=== PATIENT | male | born 1980 ===

== ENCOUNTER 2017-10-02 20:51 | Emergency (ER) | payer BC ==
--- NOTE | 2017-10-02 21:10 | ED PDOC ---
Arrival/HPI <Corey Mario - Last Filed: 10/02/17 22:50> - General Historian: Patient - History of Present Illness Time/Duration: Other (see hpi) Context: Home <Addi Hutchins - Last Filed: 10/02/17 23:29> - General Chief Complaint: Psychiatric Evaluation Time Seen by Provider: 10/02/17 21:00 - History of Present Illness Narrative History of Present Illness (Text): 10/02/17 21:10 This 37 yo male with a pmh hiv, bipolar, andxiety, presents to this ED by [facility], and BLS for PES evaluation. Patient stated he was pulled over by eeo officer due to "erratic driving". Patient stated he has not been taking his hiv medication since last summer. Patient does not a doctor. Patient feels anxious. Denies fever, sob, cp, skin rash, dizziness, or abnormal gait. (Addi Hutchins) Past Medical History - Provider Review Nursing Documentation Reviewed: Yes - Infectious Disease Hx of Infectious Diseases: None - Cardiac Hx Cardiac Disorders: No - Pulmonary Hx Respiratory Disorders: No - Neurological Hx Neurological Disorder: No - HEENT Hx HEENT Disorder: No - Renal Hx Renal Disorder: No - Endocrine/Metabolic Hx Endocrine Disorders: No - Hematological/Oncological Hx Blood Disorders: Yes - Integumentary Hx Dermatological Disorder: No - Musculoskeletal/Rheumatological Hx Musculoskeletal Disorders: No - Gastrointestinal Hx Gastrointestinal Disorders: No - Genitourinary/Gynecological Hx Genitourinary Disorders: No - Psychiatric Hx Psychophysiologic Disorder: No Hx Substance Use: Yes - Anesthesia Hx Anesthesia: No <Addi Hutchins - Last Filed: 10/02/17 23:29> Family/Social History - Physician Review Nursing Documentation Reviewed: Yes Family/Social History: Other (noncontributory) Smoking Status: Unknown If Ever Smoked Hx Alcohol Use: No Hx Substance Use: Yes <Addi Hutchins - Last Filed: 10/02/17 23:29> Allergies/Home Meds <Corey Mario - Last Filed: 10/02/17 22:50> <Addi Hutchins - Last Filed: 10/02/17 23:29> Allergies/Adverse Reactions: Allergies No Known Allergies Allergy (Verified 10/02/17 21:10) Home Medications: Home Meds Medication Instructions Recorded Confirmed Unobtainable 10/02/17 10/02/17 Review of Systems - Review of Systems Constitutional: Normal. absent: Fatigue, Weight Change, Fevers Eyes: Normal ENT: Normal Respiratory: Normal. absent: SOB, Cough Cardiovascular: Normal Gastrointestinal: Normal. absent: Abdominal Pain, Nausea, Vomiting Genitourinary Male: Normal Musculoskeletal: Normal Skin: Normal Neurological: Normal Endocrine: Normal Hemo/Lymphatic: Normal Psychiatric: Anxiety. absent: Depression, Suicidal Ideation <Addi Hutchins - Last Filed: 10/02/17 23:29> Physical Exam Temperature: Afebrile Blood Pressure: Normal Pulse: Regular Respiratory Rate: Normal Appearance: Positive for: Well-Appearing, Non-Toxic, Comfortable Pain Distress: None Mental Status: Positive for: Alert and Oriented X 3 - Systems Exam Head: Present: Atraumatic, Normocephalic Pupils: Present: PERRL Extroacular Muscles: Present: EOMI Conjunctiva: Present: Normal Mouth: Present: Moist Mucous Membranes Neck: Present: Normal Range of Motion Respiratory/Chest: Present: Clear to Auscultation, Good Air Exchange. No: Respiratory Distress, Accessory Muscle Use Cardiovascular: Present: Regular Rate and Rhythm, Normal S1, S2. No: Murmurs Abdomen: Present: Normal Bowel Sounds. No: Tenderness, Distention, Peritoneal Signs Back: Present: Normal Inspection Upper Extremity: Present: Normal Inspection. No: Cyanosis, Edema Lower Extremity: Present: Normal Inspection. No: Edema Neurological: Present: GCS=15, CN II-XII Intact, Speech Normal Skin: Present: Warm, Dry, Normal Color. No: Rashes Psychiatric: Present: Alert, Oriented x 3, Normal Insight, Normal Concentration <Addi Hutchins - Last Filed: 10/02/17 23:29> Vital Signs Temp Pulse Resp BP Pulse Ox 10/02/17 20:52 98.1 F 105 H 18 139/97 H 97 Medical Decision Making <Corey Mario - Last Filed: 10/02/17 22:50> Re-evaluation Time: 23:25 Reassessment Condition: Re-examined, Improved - Lab Interpretations I have reviewed the lab results: Yes Interpretation: No clinic. lab abnormalty - EKG Interpretation Interpreted by ED Physician: Yes (sinus tachycardia @[address] changes) Type: 12 lead EKG Comparison: No previous EKG avail. <Addi Hutchins - Last Filed: 10/02/17 23:29> ED Course and Treatment: 10/02/17 23:24 Lasha MINOR screener cleared patient to be discharge home, and to f/u out-pt clinic (Addi Hutchins) - Lab Interpretations Lab Results: 10/02/17 21:55 10/02/17 21:55 Lab Results 10/02/17 21:55: Alcohol, Quantitative < 10 10/02/17 21:55: Salicylates < 1 L, Acetaminophen < 10.0 L 10/02/17 21:55: Sodium 144, Potassium 4.0, Chloride 106, Carbon Dioxide 25, Anion Gap 17, BUN 8, Creatinine 0.5 L, Est GFR ( Amer) > 60, Est GFR (Non -Af Amer) > 60, Random Glucose 107, Calcium 9.1, Total Bilirubin 0.4, AST 30, ALT 28, Alkaline Phosphatase 65, Total Protein 8.3, Albumin 4.1, Globulin 4.2, Albumin/Globulin Ratio 1.0 L 10/02/17 21:55: WBC 6.1, RBC 4.72, Hgb 13.6 L, Hct 41.2 L, MCV 87.3, MCH 28.8, MCHC 33.0, RDW 15.0 H, Plt Count 256, MPV 9.8, Gran % 64.3, Lymph % (Auto) 20.7 L, Sharkey % (Auto) 11.0 H, Eos % (Auto) 3.8, Baso % (Auto) 0.2, Gran # 3.93, Lymph # (Auto) 1.3, Sharkey # (Auto) 0.7 H, Eos # (Auto) 0.2, Baso # (Auto) 0.01 - RAD Interpretation Radiology Orders: 10/02/17 21:19 CHEST PORTABLE [RAD] Stat - PA / COMMERCIAL LOAN ANALYST / Resident Statement BHUPINDER has reviewed & agrees with the documentation as recorded. BHUPINDER has examined the patient and agrees with the treatment plan. <Corey Mario - Last Filed: 10/02/17 22:50> Disposition/Present on Arrival <Corey Mario - Last Filed: 10/02/17 22:50> - Present on Arrival Any Indicators Present on Arrival: No History of DVT/PE: No History of Uncontrolled Diabetes: No Urinary Catheter: No History of Decub. Ulcer: No History Surgical Site Infection Following: None - Disposition Have Diagnosis and Disposition been Completed?: Yes Disposition Time: 23:28 Patient Plan: Discharge <Addi Hutchins - Last Filed: 10/02/17 23:29> - Disposition Diagnosis: Anxiety Disposition: HOME/ ROUTINE Condition: GOOD Discharge Instructions (ExitCare): Anxiety, Adult (DC) Additional Instructions: Call private doctor or clinic for follow up visit in 1-2 days. return to emergency if symptoms worsen. Referrals: [facility] [Outside] - Follow up with primary [facility] [Outside] - Follow up with primary [facility] [Outside] - Follow up with primary Forms: [employer] ([place])
[2017-10-02 21:40] VITALS: RESP 18; TEMP 98.1
[2017-10-02 22:25] LABS: BASO # 0.01 K/mm3 (0.0-2.0); BASO % 0.2 % (0.0-3.0); EOS # 0.2 (0.0-0.7); EOS % 3.8 % (1.5-5.0); GRAN # 3.93 (1.4-6.5); GRAN % 64.3 % (50.0-68.0); HEMOGLOBIN 13.6 g/dL (14.0-18.0); LYMPH # 1.3 (1.2-3.4); LYMPH % 20.7 % (22.0-35.0); MEAN CELL VOLUME 87.3 fl (80.0-105.0); MEAN CORPUSCULAR HEMOGLOBIN 28.8 pg (25.0-35.0); MEAN PLATELET VOLUME 9.8 fl (7.0-11.0); MONO # 0.7 (0.1-0.6); RBC 4.72 10^6/uL (3.5-6.1); WHITE BLOOD COUNT 6.1 10^3/ul (4.5-11.0)
[2017-10-02 22:34] LABS: ACETAMINOPHEN < 10.0 ug/ml (10.0-20.0); SALICYLATE < 1 mg/dL (2.0-20.0)
[2017-10-02 22:35] LABS: CALCIUM 9.1 mg/dL (8.4-10.5); GFR AFRICAN-AMERICAN > 60; GFR NON-AFRICAN AMERICAN > 60
[2017-10-02 22:48] LABS: ALBUMIN 4.1 g/dL (3.0-4.8); ALT/SGPT 28 U/L (7-56); AST/SGOT 30 U/L (17-59); BLOOD UREA NITROGEN 8 mg/dL (7-21)
[2017-10-03 00:12] VITALS: BP 128/75; PULSE 85; O2SAT 98
--- NOTE | 2017-10-03 10:07 | RAD ---
HISTORY: PES eval COMPARISON: No prior. FINDINGS: LUNGS: No active pulmonary disease. PLEURA: No significant pleural effusion identified, no pneumothorax apparent. CARDIOVASCULAR: Normal. OSSEOUS STRUCTURES: No significant abnormalities. VISUALIZED UPPER ABDOMEN: Normal. OTHER FINDINGS: None. IMPRESSION: No active disease.
--- NOTE | 2017-10-03 18:19 | CARD ---
APPROVED REPORT EKG Measurement Heart [id number] <Conclusion> Sinus tachycardia Left ventricular hypertrophy with repolarization abnormality Abnormal ECG
== END 2017-10-03 | disposition home or self-care (01) ==
LOC: ED 20:51 → MERGE 20:51 → ED 10-03
DX: F41.9 Anxiety disorder, unspecified (principal); Z21 Asymptomatic human immunodeficiency virus [HIV] infection status
CPT/HCPCS: 71045; 80053; 85025; 90791; 93005; 99284; G0480